=== PATIENT | female | born 1975 | race Caucasian/White ===

== ENCOUNTER 2022-09-26 09:09 | Day surgery (SDC) | payer OTHER ==
[~2022-09-26 09:09] MED LIST: Lactated Ringers 1,000 ML IV ONE; Lactated Ringers 1,000 ML IV SCH
[2022-09-26 09:33] LABS: HCG URINE TEST NEGATIVE (NEGATIVE)
[2022-09-26 09:42] VITALS: RESP 18
--- NOTE | 2022-09-26 10:13 | HP ---
THIS REPORT WAS AMENDED ON 09/26/2022 AT 1512. PROCEDURE DATE: 09/26/2022 HISTORY OF PRESENT ILLNESS: 47 year-old with possible colonoscopy 10 years ago, positive Cologuard. Some rectal bleeding at times. Recent constipation. No new pain. PAST MEDICAL HISTORY: History of anemia, anxiety, headaches, migraines, depression, and heartburn. CURRENT MEDICATIONS: Strattera. ALLERGIES: NKDA. PAST SURGICAL HISTORY: Had D&C in the past, laparoscopic cholecystectomy in the past, colonoscopy in the past, tubal in the past. FAMILY HISTORY: Negative for colon cancer. SOCIAL HISTORY: No smoking or alcohol abuse. REVIEW OF SYSTEMS: 14 systems reviewed. No chest pain or palpitations. Other systems negative or noncontributory other than above and per preadmission questionnaire. PHYSICAL EXAMINATION: BMI 38. Height 5' 2". GENERAL: No acute distress. HEENT: Sclerae nonicteric. EOM intact. Oral mucus membranes moist. NECK: No JVD. CHEST: Equal excursion. Nonlabored breathing. CVS: Regular rate and rhythm. ABDOMEN: Soft. EXTREMITIES: No significant edema. NEURO: Alert and oriented, moving extremities symmetrically. PSYCH: Appropriate mood and affect. SKIN: Dry. RECTAL: Deferred. IMPRESSION: 1. HISTORY OF POSITIVE COLOGUARD. NEED FOR COLONOSCOPY. Shown the risk sheet. Explained the procedure in detail including, but not limited to, bleeding; infection; small risk of bowel injury or perforation; risk of missed or nondiagnosis or incomplete exam possibly requiring barium enema or other studies or procedures; general risk of anesthesia or sedation; risk of bowel prep, but not limited to. Consent obtained. Will proceed with colonoscopy under MAC anesthesia as an outpatient. Otherwise, continue medications for depression.
[2022-09-26] MEDS ORDERED: Xylocaine-Mpf 2% 5 Ml Vial ONE (11:08)
[2022-09-26] MEDS ORDERED: Versed 2 MG/2 ML Injection ONE (11:08)
[2022-09-26] MEDS ORDERED: DIPRIVAN 200 MG/20 ML IV ONE ×2 (11:08→11:24)
[2022-09-26 12:15] VITALS: O2SAT 97
[2022-09-26 12:29] VITALS: BP 141/92; PULSE 64; TEMP 97
--- NOTE | 2022-09-26 15:05 | OP ---
SURGERY DATE: 09/26/2022 SURGERY TIME: 1110 PREOPERATIVE DIAGNOSIS: 1. POSITIVE COLOGUARD. POSTOPERATIVE DIAGNOSIS: 1. POOR PREP. 2. SMALL POLYP SIGMOID COLON. 3. RAISED AREA VS INFLAMMATORY AREA VS POLYPOID REACTION UPPER RECTUM, PATHOLOGY PENDING. PROCEDURE: 1. Colonoscopy to cecum. 2. Hot biopsy sigmoid colon polyp. 3. Hot biopsy raised area vs polypoid reaction vs inflammation upper rectum. SURGEON: Dr. Jacky Segovia. ANESTHESIA: MAC. ESTIMATED BLOOD LOSS: Minimal. INDICATIONS: As noted above. Risks and benefits explained in detail, but not limited to. Consent obtained. DESCRIPTION OF PROCEDURE AND FINDINGS: The patient as taken to the endoscopy room. MAC anesthesia was induced. After official time-out, no disagreement in planned procedure. Digital rectal exam did not reveal any distal rectal masses. Video colonoscope inserted and passed up through the tortuous sigmoid, descending, transverse, and ascending colon around to the cecum. Prep overall was fair in the distal left part of the colon. The proximal colon had a poorer prep. The scope was able to reach the ileocecal valve, cecum, appendiceal orifice area, but again, there was some solid, liquidy, semi-solid stool that would not suck through the scope limiting exam for small lesions. The scope was carefully withdrawn over the next 10 minutes. There were no signs of any large or obstructing masses, but again, the poor prep quality in the proximal half to 2/3 of the colon limited the exam for small/medium lesions. The scope was carefully withdrawn back to the sigmoid area. There was a small early polyp vs hyperplastic lesion removed with hot biopsy forceps. Good hemostasis noted. The scope pulled back to the proximal rectum. There was a little raised, roughened area. Whether this was just a simple inflammatory area vs early polypoid reaction or polypoid mucosa, hot biopsy was taken X 2 of this raised area. Good hemostasis noted. The scope was withdrawn. Again, very limited exam. Will see what the path shows on these biopsies. Otherwise, the patient will need short-term follow-up colonoscopy given the poor prep.
== END 2022-09-26 12:30 | disposition home or self-care (01) ==
LOC: SDC 09:09
PROVIDERS: ATTEND Surgery
DX: R19.5 Other fecal abnormalities (principal); K63.5 Polyp of colon
CPT/HCPCS: 81025; J2250; J2704

== ENCOUNTER 2022-11-21 09:25 | Day surgery (SDC) | payer OTHER ==
--- NOTE | 2022-11-21 08:21 | HP ---
DATE OF SURGERY: 11/21/2022 HISTORY OF PRESENT ILLNESS: The patient is a 47-year-old last colonoscopy ten years ago, positive Cologuard, some rectal bleeding, some constipation. No new pain. Family history negative for colon cancer. She had poor prep and needs colonoscopy rescheduled. She had a positive Cologuard. No rectal mass at the time of original endoscopy but had poor prep. PAST MEDICAL HISTORY: Anemia, anxiety, headaches, migraines, depression, and heartburn. PAST SURGICAL HISTORY: D&C in the past, laparoscopic cholecystectomy in the past, colonoscopy in the past, tubal in the past. MEDICATIONS: Strattera. ALLERGIES: NKDA. FAMILY HISTORY: Negative for colon cancer. SOCIAL HISTORY: No smoking or alcohol abuse. REVIEW OF SYSTEMS: Fourteen systems reviewed. No chest pain or palpitations. Other systems negative or noncontributory as above and per preadmission questionnaire. PHYSICAL EXAMINATION: GENERAL: No acute distress. HEENT: Sclerae nonicteric. EOMI. Oral mucous membranes moist. NECK: No JVD. CHEST: Equal excursion, nonlabored breathing. CVS: Regular rate and rhythm. ABDOMEN: Soft. No peritoneal signs. EXTREMITIES: No significant edema. NEURO: Alert, oriented, moving extremities symmetrically. RECTAL: Deferred timed to endoscopy exam. PSYCH: Appropriate mood and affect. SKIN: Dry. IMPRESSION: History of positive Cologuard, needs colonoscopy as prior colonoscopy had poor prep and now needs rescheduled. She was shown the risk sheet, explained the procedure in detail including but not limited to risk of bleeding or infection, risk of bowel injury or perforation possibly requiring further procedure, risk of missed or nondiagnosis or incomplete exam possibly requiring barium enema, other studies or procedures, general risk of anesthesia or sedation, risk of bowel prep but not limited to. Will proceed with rescheduling colonoscopy under MAC anesthesia as she had prior poor prep and positive Cologuard. Otherwise, continue medications for depression and reflux.
[~2022-11-21 09:25] MED LIST changes: -Lactated Ringers 1,000 ML IV SCH
[2022-11-21] MEDS: Lactated Ringers 1,000 ML IV SCH (09:37)
[2022-11-21 09:39] LABS: HCG URINE TEST NEGATIVE (NEGATIVE)
[2022-11-21 09:44] VITALS: RESP 18
[2022-11-21] MEDS ORDERED: Xylocaine-Mpf 2% 5 Ml Vial ONE (11:14)
[2022-11-21] MEDS ORDERED: DIPRIVAN 200 MG/20 ML IV ONE ×2 (11:14→11:21)
[2022-11-21 12:17] VITALS: O2SAT 99
[2022-11-21 12:26] VITALS: BP 144/88; PULSE 79; TEMP 97
--- NOTE | 2022-11-22 09:14 | OP ---
SURGERY DATE/TIME: 11/21/2022 1114 PREOPERATIVE DIAGNOSIS: History of positive Cologuard in the past, history of poor prep, need for follow up colonoscopy. POSTOPERATIVE DIAGNOSES: 1) Good prep. 2) Small polyps transverse colon and rectum. 3) Patchy area of inflammation rectum as well as vague raised area in the cecum. 4) ASA Class II. PROCEDURES: 1) Colonoscopy to cecum. 2) Hot biopsy polypectomy small early transverse colon polyp and small rectal polyp. 3) Cold biopsy patchy area of inflammation rectum. 4) Hot biopsy small raised area of cecum versus hyperplasia of cecum path pending. SURGEON: Dr. Jacky Segovia. ANESTHESIA: MAC. ESTIMATED BLOOD LOSS: Minimal. INDICATIONS: As noted above. Risks and benefits explained in detail but not limited to and consent obtained. DESCRIPTION OF PROCEDURE AND FINDINGS: The patient is taken to the endoscopy room. MAC anesthesia induced. After official time out and no disagreement with planned procedure, digital rectal exam did not reveal any rectal masses. Video colonoscope inserted and passed up through the tortuous sigmoid, descending, transverse and ascending colon around to the cecum. Appendiceal orifice and valve well visualized and photo documented. Prep overall is good, a little bit of liquidy stool, overall good prep. There was a small vague raised area in the cecum. Hot biopsy forceps with brief bursts of cautery. Good hemostasis noted. Whether this is hyperplasia versus early polyp was removed. The scope is carefully withdrawn over the next ten minutes. Small polyp in the transverse colon removed with hot biopsy polypectomy. The scope is pulled back to the rectum, small patchy area of inflammation removed with cold biopsy forceps, some pin point cautery at the biopsy site. Good hemostasis was noted. Small rectal polyp removed with hot biopsy forceps. Good hemostasis noted. The scope is withdrawn. The patient tolerated the procedure well. There were no immediate complications. No family was available at this time.
== END 2022-11-21 12:30 | disposition home or self-care (01) ==
LOC: SDC 09:25
PROVIDERS: ATTEND Surgery
DX: R19.5 Other fecal abnormalities (principal); K62.1 Rectal polyp; D12.3 Benign neoplasm of transverse colon
CPT/HCPCS: 81025; J2704